=== PATIENT | male | born 1950 | race Caucasian/White ===

== ENCOUNTER 2017-01-29 14:07 | Emergency (ER) | payer OTHER, MEDICARE ==
[~2017-01-29] VITALS: Ht 188 cm; Wt 90.7 kg
[~2017-01-29 14:07] MED LIST: ALBUTEROL 3 ML3 ML INH; IBUPROFEN600 MG PO; IBUPROFEN800 M1 PO; PROAIR HFA0.09 MG/Ac INH; ROBITUSSIN W/CO10 ML PO; TRAMADOL HCL50 M1 PO; ZITHROMAX Z-PA250 M1 PO
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
[2017-01-29 20:07] VITALS: BP 129/72
[2017-03-18] MEDS ORDERED: MOBIC15 M1 PO (13:25)
== END 2017-01-29 20:08 ==
LOC: ERH 14:07
DX: F10.121 Alcohol abuse with intoxication delirium (principal)

== ENCOUNTER 2017-02-12 17:17 | Emergency (ER) | payer OTHER, MEDICARE ==
[~2017-02-12] VITALS: Ht 188 cm; Wt 90.7 kg
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
--- NOTE | 2017-02-12 19:26 | RADIOLOGY REPORT ---
EXAMINATION: XR LUMBOSACRAL SPINE CLINICAL INFORMATION: Right lower back pain. COMPARISON: None TECHNIQUE: 4 views of the lumbosacral spine FINDINGS: No acute fracture or subluxation. Vertebral bodies and posterior elements are anatomically aligned. Vertebral body heights and intervertebral disc spaces are maintained. Small endplate osteophytes at the lower thoracic spine. The sacroiliac joints are intact. The sacrum appears intact. An IVC filter is noted. Right pelvic fixation hardware in place. IMPRESSION: No fracture or malalignment. Minimal degenerative changes.
[2017-02-12 20:32] VITALS: BP 113/59
[2017-03-18] MEDS ORDERED: MOBIC15 M1 PO (13:25)
== END 2017-02-12 20:33 ==
LOC: ERH 17:17
DX: F10.129 Alcohol abuse with intoxication, unspecified (principal); M54.5 Low back pain
CPT/HCPCS: 72110; 81001

== ENCOUNTER 2017-02-28 11:21 | Emergency (ER) | payer OTHER, MEDICARE ==
[2017-03-18] MEDS ORDERED: MOBIC15 M1 PO (13:25)
== END 2017-02-28 12:00 | disposition admitted as inpatient to this hospital (09) ==
LOC: ERH 11:21
DX: F10.129 Alcohol abuse with intoxication, unspecified (principal)

== ENCOUNTER 2017-03-30 11:40 | Emergency (ER) | payer OTHER, MEDICARE ==
[~2017-03-30] VITALS: Ht 172.7 cm; Wt 81.6 kg
[~2017-03-30 11:40] MED LIST changes: +KEFLEX500 M1 PO; +MOBIC15 M1 PO
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
[2017-03-30 17:20] VITALS: BP 124/72
== END 2017-03-30 17:38 ==
LOC: ERH 11:40
DX: F10.129 Alcohol abuse with intoxication, unspecified (principal)

== ENCOUNTER 2017-04-24 11:59 | Emergency (ER) | payer OTHER, MEDICARE ==
[~2017-04-24] VITALS: Ht 188 cm; Wt 90.7 kg
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
[2017-04-24 18:17] VITALS: BP 114/69
== END 2017-04-24 20:19 ==
LOC: ERH 11:59
DX: F10.121 Alcohol abuse with intoxication delirium (principal)

== ENCOUNTER 2018-03-05 12:21 | Emergency (ER) | payer OTHER, MEDICARE ==
[~2018-03-05 12:21] MED LIST changes: +ALA-CORT30 GM TOP
[2018-03-05 12:32] VITALS: BP 124/82
== END 2018-03-05 13:11 | disposition left against medical advice (07) ==
LOC: ERH 12:21
DX: M79.606 Pain in leg, unspecified (principal); Z53.21 Procedure and treatment not carried out due to patient leaving prior to being seen by health care provider